=== PATIENT | female | born 1975 | race Caucasian/White ===

== ENCOUNTER 2019-08-23 13:55 | Emergency (ER) | payer SELFPAY ==
[~2019-08-23] VITALS: Ht 160 cm; Wt 120.3 kg
--- OUTSIDE RECORDS SUMMARY | 2019-08-23 13:58 | XMS REPORT | Summary of Care ---
Author Author [facility] Organization [facility] Address Unknown Phone Unavailable Care Team Providers Care Financial Reporting Analyst Name Role Phone Pcp, Patient Does Not Have A PCP Reason for Referral * MRI/CAT Scan (STAT) Referred By Contact Referred To Contact Status Reason Specialty Diagnoses / Procedures Elena Cardenas DO [address] [address] [place] [address] New Request Diagnostic Diagnoses Radiology Rectal bleeding P rocedures CT ABDOMEN PELVIS W CONTRAST Reason for Visit * Reason Comments Rectal Bleeding Abdominal Pain * Auth/Cert Referred By Contact Referred To Contact Status Reason Specialty Diagnoses / Procedures [facility] Emergency Dept [address] [place] [address] Emergency Medicine Encounter Details Care Team Description Date Type Department Elena Cardenas DO [address] [address] [place] [address] Rectal bleeding (Primary Dx); Right lower quadrant abdominal pain 07/14/2019 Emergency [facility] Department - [address] [facility] 07/15/2019 [place] [address] Allergies Comments Active Allergy Reactions Severity Noted Date GI upset Acetaminophen Other - See Low 07/14/2019 comments documented as of this encounter (statuses as of 07/15/2019) Medications End Date Status Medication Sig Dispensed Refills Start Date Active dicyclomine 10 mg Take 1 24 capsule 0 capsuleIndications: Right capsule by 0 lower quadrant abdominal mouth 4 pain (four) times daily. documented as of this encounter (statuses as of 07/15/2019) Active Problems Not on filedocumented as of this encounter (statuses as of 07/15/2019) Social History Date Tobacco Use Types Packs/Day Years Used Never Assessed Sex Assigned at Date Recorded Not on file Industry Job Start Date Occupation Not on file Not on file Not on file Travel End Travel History Travel Start No recent travel history available. documented as of this encounter Last Filed Vital Signs Reading Time Taken Comments Vital Sign 129/65 07/15/2019 2:30 AM [facility] Blood Pressure 84 07/15/2019 2:30 AM [facility] Pulse 37.1 C (98.8 F) 07/15/2019 2:30 AM [facility] Temperature 16 07/15/2019 2:30 AM [facility] Respiratory Rate 97% 07/15/2019 2:30 AM PIN [facility]ER Oxygen Saturation - - Inhaled Oxygen Concentration 113.4 kg (250 lb) 07/14/2019 10:11 PM [facility] Weight 161.9 cm (5' 3.75") 07/14/2019 10:11 PM [facility] Height 43.25 07/14/2019 10:11 PM [facility]ER Body Mass Index documented in this encounter Discharge Instructions * Instructions* Elena Cardenas, DO - 07/15/2019 Follow up with the primary care physician or other designated or consulting phys ician as outlined in the discharge instructions. If your symptoms are getting wo rse, please return to this or the closest emergency department or a call to 911 * Attachments The following attachments cannot be sent through Care Everywhere.* Rectal Bleeding, Evaluating and Treating (Albanian) * Abdominal Pain, Unknown Cause, (Female) (Albanian) documented in this encounter Plan of Treatment Health Maintenance Due Date Last Done Comments DTaP,Tdap,and Td Vaccines 1986 (1 - Tdap) PAP SMEAR 01/30/1996 Breast Cancer Screening 2015 (MAMMOGRAM) INFLUENZA VACCINE (#1) 2019 PNEUMOCOCCAL 0-64 YEARS Aged Out No longer eligible based COMBINED SERIES on patient's age to complete this topic documented as of this encounter Procedures Comments Procedure Name Priority Date/Time Associated Diagnosis CT ABDOMEN PELVIS W STAT 07/15/2019 Rectal bleeding CONTRAST 12:54 AM PIN [facility]ER POCT TEST ZULEMA 07/15/2019 Right lower quadrant 12:36 AM PIN CHASER abdominal pain CBC WITH DIFFERENTIAL STAT 07/14/2019 Right lower quadrant 10:19 PM PIN [facility]ER abdominal pain CBC WITH DIFFERENTIAL STAT 07/14/2019 Right lower quadrant 10:19 PM PIN [facility]ER abdominal pain COMP. METABOLIC PANEL STAT 07/14/2019 Right lower quadrant (66340) 10:19 PM PIN [facility]ER abdominal pain LIPASE STAT 07/14/2019 Right lower quadrant 10:19 PM PIN [facility]ER abdominal pain AMYLASE STAT 07/14/2019 Right lower quadrant 10:19 PM [facility] abdominal pain documented in this encounter Results * CT ABDOMEN PELVIS W CONTRAST (07/15/2019 12:54 AM PIN CHASER) Specimen Impressions Performed At 1. No acute intraabdominal pathology. PACS/VR/DOSE 2. Fatty liver and hepatomegaly. RL: 6800 AFC: [id number] End of report Narrative Performed At EXAM: CT ABDOMEN PELVIS W CONTRAST PACS/VR/DOSE Ordering Physician: ELENA CARDENAS HISTORY: Rectal bleeding. Abdominal pain. COMPARISON: none TECHNIQUE: CT of the abdomen and pelvis with IV contrast. Coronal and sagittal reformatted images were obtained. CT performed according to ALARA principles. CT OF THE ABDOMEN WITH IV CONTRAST: The lung bases are clear. There is diffuse fatty infiltration of the liver. Hepatomegaly also present. Liver measures up to 21.7 cm and craniocaudal length and 19.5 cm in AP length. The patient is post cholecystectomy. The spleen is normal. The pancreas is normal. The adrenals are normal. Tiny less than 5 mm cortical hypodensities noted in the right kidney are too small to characterize, probably small cysts. The intraabdominal large and small bowel are normal. The appendix is seen in the right lower quadrant and is normal. The intra-abdominal vasculature is normal. There is no free air, free fluid, or pathologic lymphadenopathy. CT OF THE PELVIS WITH IV CONTRAST: The rectum and sigmoid are normal. The distal ureters and bladder are normal. There is no free fluid or pathologic lymphadenopathy in the pelvis. Uterus and adnexa appear unremarkable. There is a tiny fat-containing umbilical hernia. Right breast implant is partially imaged. Osseous structures are unremarkable. Procedure Note [facility], Radiant Results Inft User - 07/15/2019 1:05 AM PIN CHASER EXAM: CT ABDOMEN PELVIS W CONTRAST Ordering Physician: ELENA CARDENAS HISTORY: Rectal bleeding. Abdominal pain. COMPARISON: none TECHNIQUE: CT of the abdomen and pelvis with IV contrast. Coronal and sagittal reformatted images were obtained. CT performed according to ALARA principles. CT OF THE ABDOMEN WITH IV CONTRAST: The lung bases are clear. There is diffuse fatty infiltration of the liver. Hepatomegaly also present. Liver measures up to 21.7 cm and craniocaudal length and 19.5 cm in AP length. The patient is post cholecystectomy. The spleen is normal. The pancreas is normal. The adrenals are normal. Tiny less than 5 mm cortical hypodensities noted in the right kidney are too small to characterize, probably small cysts. The intraabdominal large and small bowel are normal. The appendix is seen in the right lower quadrant and is normal. The intra-abdominal vasculature is normal. There is no free air, free fluid, or pathologic lymphadenopathy. CT OF THE PELVIS WITH IV CONTRAST: The rectum and sigmoid are normal. The distal ureters and bladder are normal. There is no free fluid or pathologic lymphadenopathy in the pelvis. Uterus and adnexa appear unremarkable. There is a tiny fat-containing umbilical hernia. Right breast implant is partially imaged. Osseous structures are unremarkable. IMPRESSION 1. No acute intraabdominal pathology. 2. Fatty liver and hepatomegaly. RL: 6800 AFC: [id number] End of report Performing Organization Address City/State/Zipcode Phone Number PACS/VR/DOSE * POCT TEST (07/15/2019 12:36 AM PIN CHASER) POCT PREG Negative On board Present controls acceptable with C Line POCT PREG LOT # [id number] POCT PREG TEST 11/08/20 DATE Specimen Urine - URINE, CLEAN CATCH * CBC WITH DIFFERENTIAL (07/14/2019 10:19 PM PIN CHASER) WBC 11.18 (H) 4.30 - 11.10 [facility] 10*3/L [facility] RBC 4.17 3.93 - 5.25 10*6/L [facility] HGB 12.7 11.6 - 15.0 g/dL [facility] HCT 37.3 35.7 - 45.2 % [facility] MCV 89.4 80.6 - 95.5 fL [facility] MCH 30.5 25.9 - 32.8 pg [facility] MCHC 34.0 31.6 - 35.1 g/dL [facility] RDW-SD 43.3 39.0 - 49.9 fL [facility] RDW-CV 13.2 12.0 - 15.5 % [facility] PLT 229 166 - 358 10*3/L [facility] MPV 11.1 9.5 - 12.9 fL [facility] NRBC/100 WBC 0.0 0.0 - 10.0 /100 WBCs [facility] NRBC x10^3 <0.01 10*3/L [facility] GRAN MAT (NEUT) 66.3 % [facility] IMM GRAN % 0.60 % [facility] LYMPH % 25.1 % [facility] MONO % 5.4 % [facility] EOS % 2.2 % [facility] BASO % 0.4 % [facility] GRAN MAT 7.41 (H) 1.88 - 7.09 10*3/uL [facility] x10^3(ANC) [facility] IMM GRAN x10^3 0.07 (H) 0.00 - 0.06 10*3/uL [facility] LYMPH x10^3 2.81 1.32 - 3.29 10*3/uL [facility] MONO x10^3 0.60 0.33 - 0.92 10*3/uL [facility] EOS x10^3 0.25 0.03 - 0.39 10*3/uL [facility] BASO x10^3 0.04 0.01 - 0.07 10*3/uL [facility] Specimen Blood - VENOUS Performing Organization Address City/State/Zipcode Phone Number [facility] CLIA: [id number], [address] [place] [address] [facility] * LIPASE (07/14/2019 10:19 PM PIN CHASER) LIPASE 204 0 - 220 U/L [facility] Specimen Blood - VENOUS Performing Organization Address City/State/Zipcode Phone Number [facility] CLIA: [id number], [address] [place], [place] [address] [facility] * AMYLASE (07/14/2019 10:19 PM PIN CHASER) MICHELLE 61 35 - 110 U/L [facility] Specimen Blood - VENOUS Performing Organization Address City/State/Zipcode Phone Number [facility] CLIA: [id number], [address] [place], [place] [id number] [facility] * COMP. METABOLIC PANEL ([id number]) (07/14/2019 10:19 PM PIN CHASER) NA 136 135 - 145 mmol/L [facility] K 4.1 3.5 - 5.0 mmol/L [facility] CL 101 98 - 108 mmol/L [facility] CO2 TOTAL 25 23 - 31 mmol/L [facility] AGAP 10 2 - 16 [facility] BUN 14 7 - 23 mg/dL [facility] GLUCOSE 219 (H) 70 - 110 mg/dL [facility] CREATININE 0.56 0.50 - 1.04 mg/dL [facility] TOTAL BILI 0.2 0.1 - 1.1 mg/dL [facility] CALCIUM 8.6 8.6 - 10.6 mg/dL [facility] T PROTEIN 6.6 6.3 - 8.2 g/dL [facility] ALBUMIN 3.8 3.5 - 5.0 g/dL [facility] ALK PHOS 82 34 - 122 U/L [facility] ALTv 60 (H) 5 - 35 U/L [facility] AST(SGOT) 46 (H) 13 - 40 U/L [facility] SERVICES-[facility] eGFR 117.6 mL/min/1.73m2 [facility] Calculation SERVICES-[facility] (Non-[facility]) eGFR 142.5 mL/min/1.73m2 [facility] Calculation SERVICES[facility] ([facility]) Specimen Blood - VENOUS Narrative Performed At Association of Glomerular Filtration Rate (GFR) and Staging of Kidney Disease* [facility] + + + + SERVICES- [place] | GFR (mL/min/1.73 m2) | With Kidney Damage | Without Kidney Damage CAMPUS + + + + | >90 | Stage one | Normal + + + + | 60-89 | Stage two | Decreased GFR + + + + | 30-59 | Stage three | Stage three + + + + | 15-29 | Stage four | Stage four + + + + | <15 (or dialysis) | Stage five | Stage five + + + + *Each stage assumes the associated GFR level has been in effect for at least three months. Stages 1 to 5, with or without kidney disease, indicate chronic kidney disease. Notes: Determination of stages one and two (with eGFR >59mL/min/1.73 m2) requires estimation of kidney damage for at least three months as defined by structural or functional abnormalities of the kidney, manifested by either: Pathological abnormalities or Markers of kidney damage (including abnormalities in the composition of the blood or urine or abnormalities in imaging tests). Performing Organization Address City/State/Zipcode Phone Number [facility] CLIA: [id number], [address] [place] [address] [facility] documented in this encounter Visit Diagnoses Diagnosis Rectal bleeding - Primary Hemorrhage of rectum and anus Right lower quadrant abdominal pain Abdominal pain, right lower quadrant documented in this encounter Administered Medications Action Date Dose Rate Site Medication Order MAR Action 07/15/2019 12:41 AM PIN CHASER 50 mcg FENTanyl PF (SUBLIMAZE (PF)) injection Given 50 mcg 50 mcg, Slow IV Push, ONCE, 1 dose, Lacey 07/15/19 at 0145, Routine 07/15/2019 12:50 AM PIN CHASER 100 mL iohexol (OMNIPAQUE 350 BULK-100 mL) Given injection 100 mL 100 mL, Intravenous, ONCE, 1 dose, Lacey 07/15/19 at 0100, Routine documented in this encounter
--- OUTSIDE RECORDS SUMMARY | 2019-08-23 13:58 | XMS REPORT ---
Author Author [facility] Address Unknown Phone Unavailable Care Team Providers Care Lining Sewer Name Role Phone Unavailable Unavailable Problems This patient has no known problems. Allergies, Adverse Reactions, Alerts This patient has no known allergies or adverse reactions. Medications This patient has no known medications.
[2019-08-23] MEDS ORDERED: KETOROLAC TROMETHAMINE 60 MG/2 ML VIAL IM ONE (15:00)
[2019-08-23] MEDS ORDERED: ONDANSETRON HCL 4 MG ORAL DISINTEGRATING TAB ONE (15:33)
--- NOTE | 2019-08-23 15:42 | Diagnostic Imaging Report ---
EXAM: CT Abdomen and Pelvis WITHOUT intravenous contrast INDICATION: Abdominal pain COMPARISON: None. TECHNIQUE: Abdomen and pelvis were scanned utilizing a multidetector helical scanner from the lung base to the pubic symphysis without administration of IV contrast. Coronal and sagittal reformations were obtained. IV CONTRAST: None ORAL CONTRAST: Water COMPLICATIONS: None RADIATION DOSE: Total DLP: 1285 mGy*cm Dose modulation, iterative reconstruction, and/or weight based adjustment of the mA/kV was utilized to reduce the radiation dose to as low as reasonably achievable. FINDINGS: LOWER THORAX: Normal. HEPATOBILIARY: Diffuse hepatic steatosis. No focal liver lesion. No biliary ductal dilation. Status post cholecystectomy. SPLEEN: No splenomegaly. PANCREAS: No focal masses or ductal dilatation. ADRENALS: No adrenal nodules. KIDNEYS/URETERS: 2 mm nonobstructive left lower pole renal calculus. No hydronephrosis or solid mass lesions. PELVIC ORGANS/BLADDER: Unremarkable. PERITONEUM / RETROPERITONEUM: No free air or fluid. LYMPH NODES: No lymphadenopathy. VESSELS: Unremarkable. GI TRACT: No abnormal bowel thickening. No bowel obstruction. Normal appendix. BONES AND SOFT TISSUES: Unremarkable. IMPRESSION: 2 mm nonobstructive left lower pole renal Iván clip. No hydronephrosis. Diffuse hepatic steatosis. Signed by: Wilman Funes MD on 08/23/2019 3:38 PM
[2019-08-23] MEDS ORDERED: ONDANSETRON HCL 4 MG ORAL DISINTEGRATING TAB PO ONE (15:45)
[2019-08-23] MEDS ORDERED: KETOROLAC TROME10 MG PO (16:23)
[2019-08-23] MEDS ORDERED: ONDANSETRON ODT8 MG PO (16:23)
--- NOTE | 2019-08-23 17:06 | NUR ---
no vomiting after given zofran, continues to have pain pt states same pain as she has had years ago. pt given copy of all labs and ct report. pt verbalized discharge instructions given.
[2019-08-23] MEDS ORDERED: SODIUM CHLORIDE 0.9% 1000ML 1,000 ML ONE (18:51)
== END 2019-08-23 17:08 | disposition home or self-care (01) ==
LOC: FSED 13:55
DX: R10.32 Left lower quadrant pain (principal); R11.2 Nausea with vomiting, unspecified
CPT/HCPCS: 74176; 81003; 96372; 99283; J1885; J7030; Q0162